=== PATIENT | female | born 1990 | race Two or more races ===

== ENCOUNTER 2017-01-11 07:16 | Emergency (ER) | payer SELFPAY ==
[2017-01-11 07:21] VITALS: BMI 32.0
--- NOTE | 2017-01-11 07:45 | PDOC ---
History of Present Illness - General Chief Complaint: Pain Stated Complaint: LWR ABD PAIN, HEADACHE, FEVER Time Seen by Provider: 01/11/17 07:42 History Source: Patient Exam Limitations: No Limitations - History of Present Illness Initial Comments: CHIEF COMPLAINT: 26 y/o afebrile female with PMH acute appendicitis with periappendical abscess in September of 2014 managed with IV abx only c/o abdominal pain and constipation x 2 days. HISTORY OF PRESENT ILLNESS: The patient states that she has lower abdominal discomfort, nausea and discomfort when trying to have a bowel movement x 2 days. The patient denies f/c, v/d, CP, SOB, back pain, hematuria, dysuria. The patient was treated conservatively for her appendiceal abscess 2 years ago and never had the appendix removed. She states her current pain feels similar to the pain she felt when she had the appendicitis. She describes the pain as intermittent. Vital signs on arrival are within normal limits. REVIEW OF SYSTEMS: GENERAL/CONSTITUTIONAL: No fever/chills. No weakness. No weight change. HEAD, EYES, EARS, NOSE AND THROAT: No change in vision. No ear pain or discharge. No sore throat. CARDIOVASCULAR: No chest pain or shortness of breath. RESPIRATORY: No cough, wheezing, or hemoptysis. GASTROINTESTINAL: +lower abdominal pain, nausea, constipation. No vomiting, diarrhea. GENITOURINARY: No dysuria, frequency, or change in urination. MUSCULOSKELETAL: No joint or muscle swelling or pain. No neck or back pain. SKIN: No rash or easy bruising. NEUROLOGIC: No headache, vertigo, loss of consciousness, or loss of sensation. PHYSICAL EXAM: GENERAL: The patient is awake, alert, and fully oriented, in no acute distress. She is very well appearing, ambulatory, in NAD or obvious discomfort. HEAD: Normal with no signs of trauma. ENT: Pupils equal, round and reactive to light, extraocular movements intact, sclera anicteric, conjunctiva clear. Neck supple. LUNGS: Clear to auscultation bilaterally. Normal excursion. No respiratory distress or use of accessory muscles. CV: RRR, S1/S2, no MRG. Cap refill < 2 sec. ABDOMEN: Soft, non-distended, minimal TTP of suprapubic region. No rebound, guarding or rigidity. Negative obturator or psoas signs. BACK: No CVA TTP b/l. EXTREMITIES: Normal range of motion, no edema. NEUROLOGICAL: Normal speech, normal gait. CN II-XII grossly intact. SKIN: Warm, dry, normal turgor, no rashes or lesions noted. Past History - Past Medical History Allergies/Adverse Reactions: Allergies Allergy/AdvReac Type Severity Reaction Status Date / Time No Known Drug Allergies Allergy Verified 01/11/17 07:21 Home Medications: Ambulatory Orders NK [No Known Home Medication] 02/28/16 Asthma: No Cancer: No Cardiac Disorders: No Diabetes: No HTN: No Seizures: No Thyroid Disease: No - Psycho/Social/Smoking Cessation Hx Anxiety: No Suicidal Ideation: No Smoking History: Never smoked Have you smoked in the past 12 months: No Hx Alcohol Use: Yes (SOCIAL) Drug/Substance Use Hx: No Substance Use Type: None Hx Substance Use Treatment: No *Physical Exam - Vital Signs Last Vital Signs Temp Pulse Resp BP Pulse Ox 98.6 F 87 20 129/75 99 01/11/17 07:18 01/11/17 07:18 01/11/17 07:18 01/11/17 07:18 01/11/17 07:18 ED Treatment Course - LABORATORY CBC & Chemistry Diagram: 01/11/17 08:55 01/11/17 08:55 Medical Decision Making - Medical Decision Making A/P: 26 y/o afebrile female with lower abdominal pain, constipation and nausea x 2 days. Plan is as follows: 1. hcg/UA/culture 2. labs 3. IV fluids 4. IV zofran 5. Ct scan abd/pelvis CT scan abd/pelvis IMPRESSION: CT abdomen and pelvis shows a normal appendix with no signs of appendicitis and no signs of colitis or diverticulitis. No free air with no signs of bowel obstruction. Mild degree of free fluid surrounds the region of the left adnexa with a small amount of fluid near the right adnexa and in the floor of the pelvis with a visualized ruptured cyst imaged in the left ovary measuring 1.9 x 1.4cm, findings consistent with a ruptured left ovarian cyst. Patient now has a fever Ordered 975mg of Tylenol Transvaginal Ultrasound IMPRESSION: Some free fluid in the cul de sac. May be from previously ruptured cyst. Pt's vital signs have improved: Temp - 98.6 HR - 66bpm BP - 117/65 The patient states she feels well. Explained to her she most likely had a ruptured cyst. Gave her all of her results. She may also have a viral illness. Suggested she take Tylenol every 4 hours for fever, drink plenty of fluids, follow up with her doctor within 1 week and return to the ER with any worsening or concerning symptoms. The patient verbalizes understanding of all instructions, has no further questions and is awaiting discharge. *DC/Admit/Observation/Transfer Diagnosis at time of Disposition: Ovarian cyst Abdominal pain Qualifiers: Abdominal location: upper abdomen, unspecified Qualified Code(s): R10.10 - Upper abdominal pain, unspecified Fever Qualifiers: Fever type: unspecified Qualified Code(s): R50.9 - Fever, unspecified - Discharge Dispostion Disposition: HOME Condition at time of disposition: Improved - Referrals Referrals: Sisi Ramon MD [Staff Physician] - Call tomorrow - Patient Instructions Printed Discharge Instructions: DI for Ovarian Cyst, DI for Fever (Symptom) -- Adult Additional Instructions: Discharge Instructions: -It appears that you had an ovarian cyst that ruptured; there is nothing to do for this except take Motrin for pain if needed -You also had a fever in the ER; if you continue to have fevers, please take tylenol every 4 hours to bring it down and drink plenty of water. -Call Dr. Ramon tomorrow to schedule follow up appointment within 1 week -Return to the ER with any worsening or concerning symptoms
[2017-01-11] MEDS ORDERED: SODIUM CHLORIDE 1,000 ML IV STA ×2 (08:29→09:29)
[2017-01-11 09:05] LABS: BASOPHIL 0.4 % (0-2.0); EOSINOPHIL 0.1 % (0-4.5); MCH 30.7 pg (25.7-33.7); MCHC 33.7 g/dl (32.0-36.0); MEAN CELL VOLUME 91.1 fl (80-96); MEAN PLT VOLUME 9.1 fl (7.5-11.1); NEUTROPHILS 75.8 % (42.8-82.8); PLATELET COUNT 159 K/MM3 (134-434); RDW 14.9 % (11.6-15.6); WHITE BLOOD COUNT 6.8 K/mm3 (4.0-10.0)
[2017-01-11 09:06] LABS: URINE APPEARANCE CLEAR; URINE BILIRUBIN NEGATIVE (NEGATIVE); URINE COLOR YELLOW; URINE GLUCOSE (UA) NEGATIVE (NEGATIVE); URINE KETONE 2+ (NEGATIVE); URINE LEUK ESTERASE NEGATIVE (NEGATIVE); URINE NITRITE NEGATIVE (NEGATIVE); URINE UROBILINOGEN 2.0 E.U/dl E.U./dl (0.2-1.0)
[2017-01-11] MEDS ORDERED: ONDANSETRON 4 MG/2 ML VIAL IVPUSH ONE (09:19)
[2017-01-11 09:22] LABS: URINE BLOOD 3+ (NEGATIVE); URINE PROTEIN 1+ (NEGATIVE)
[2017-01-11 09:24] LABS: URINE MUCUS MANY; URINE RBC 44 /hpf (0-3); URINE WBC 2 /hpf (3-5)
[2017-01-11 09:34] LABS: ALBUMIN 3.9 g/dl (3.4-5.0); ALK PHOS 74 U/L (45-117); ANION GAP 6 (8-16); BILIRUBIN,TOTAL 0.3 mg/dL (0.2-1.0); CO2 27 mmol/L (21-32); CREATININE 0.8 mg/dL (0.55-1.02); GLUCOSE,RANDOM 104 mg/dL (74-106); SGOT/AST 23 U/L (15-37); SGPT/ALT 22 U/L (12-78); TOT PROT 7.6 g/dl (6.4-8.2)
[2017-01-11] MEDS ORDERED: ONDANSETRON 4 MG/2 ML VIAL ONE (09:38)
[2017-01-11] MEDS ORDERED: ACETAMINOPHEN 325 MG TABLET (FP) ONE (14:15)
[2017-01-11] MEDS ORDERED: ACETAMINOPHEN 500 MG TABLET (FP) PO ONE (14:18)
[2017-01-11 17:07] VITALS: BP 117/65; PULSE 66; TEMP 98.6
== END 2017-01-11 18:15 | disposition home or self-care (01) ==
LOC: JER 07:16
PROC: 3E033GC Introduction of Other Therapeutic Substance into Peripheral Vein, Percutaneous Approach (ICD-10-PCS; principal; 2017-01-11)
PROC: 3E0337Z Introduction of Electrolytic and Water Balance Substance into Peripheral Vein, Percutaneous Approach (ICD-10-PCS; 2017-01-11)
DX: N83.209 Unspecified ovarian cyst, unspecified side (principal); R10.10 Upper abdominal pain, unspecified; R50.9 Fever, unspecified
CPT/HCPCS: 36415; 74177-TC; 76830-TC; 76856-TC; 80053; 81003; 81015; 83605; 84703; 85025; 87086; 99282-25

== ENCOUNTER 2019-03-13 07:58 | Emergency (ER) | payer SELFPAY ==
[2019-03-13 08:06] VITALS: BP 142/68; PULSE 75; TEMP 97.9; BMI 29.2
[2019-03-13] MEDS ORDERED: KETOROLAC TROMETHAMINE 30 MG/1 ML VIAL IVPUSH ONE (08:20)
[2019-03-13] MEDS ORDERED: ONDANSETRON 4 MG/2 ML VIAL IVPUSH ONE (08:20)
[2019-03-13] MEDS ORDERED: KETOROLAC TROMETHAMINE 30 MG/1 ML VIAL ONE (09:01)
[2019-03-13] MEDS ORDERED: ONDANSETRON 4 MG/2 ML VIAL ONE (09:01)
[2019-03-13 09:14] LABS: BASO % 0.2 % (0-2.0); EOS % 0.7 % (0-4.5); HEMATOCRIT 40.3 % (32.4-45.2); HEMOGLOBIN 13.7 GM/dL (10.7-15.3); LYMPH % 12.6 % (8-40); MCH 32.1 pg (25.7-33.7); MCHC 33.9 g/dl (32.0-36.0); MEAN CELL VOLUME 94.6 fl (80-96); MEAN PLT VOLUME 9.2 fl (7.5-11.1); MONO % 3.6 % (3.8-10.2); NEUT % 82.9 % (42.8-82.8); PLATELET COUNT 194 K/MM3 (134-434); RBC 4.26 M/mm3 (3.60-5.2); RDW 14.2 % (11.6-15.6); WHITE BLOOD COUNT 11.5 K/mm3 (4.0-10.0)
[2019-03-13 09:34] LABS: ALBUMIN 4.1 g/dl (3.4-5.0); BILIRUBIN,TOTAL 0.5 mg/dL (0.2-1); BLOOD UREA NITROGEN 11.4 mg/dL (7-18); CALCIUM 9.1 mg/dL (8.5-10.1); CREATININE 0.8 mg/dL (0.55-1.3); TOT PROT 7.3 g/dl (6.4-8.2)
[2019-03-13 09:55] LABS: HYALINE CASTS 3 /lpf (0-8); PH,URINE 5.5 (5.0-8.0); URINE APPEARANCE TURBID; URINE BACTERIA 4.2 /hpf (NEGATIVE); URINE BILIRUBIN NEGATIVE (NEGATIVE); URINE COLOR YELLOW; URINE GLUCOSE (UA) NEGATIVE (NEGATIVE); URINE KETONE NEGATIVE (NEGATIVE); URINE LEUK ESTERASE NEGATIVE (NEGATIVE); URINE NITRITE NEGATIVE (NEGATIVE); URINE PROTEIN TRACE (NEGATIVE); URINE RBC 3 /hpf (0-4); URINE UROBILINOGEN 0.2 mg/dL (0.2-1.0); URINE WBC 1 /hpf (0-5)
--- NOTE | 2019-03-13 10:07 | PDOC ---
History of Present Illness - General Chief Complaint: Pain, Acute Stated Complaint: ABD. PAIN/ VOMITING Time Seen by Provider: 03/13/19 08:12 History Source: Patient - History of Present Illness Timing/Duration: reports: constant Abdominal Pain Onset Location: reports: other (lower abd) Past History - Past Medical History Allergies/Adverse Reactions: Allergies Allergy/AdvReac Type Severity Reaction Status Date / Time No Known Drug Allergies Allergy Verified 01/11/17 07:21 Penicillins Allergy Verified 03/13/19 08:06 Home Medications: Ambulatory Orders Acetaminophen [Tylenol -] 1,000 mg PO Q6H #30 tablet 03/13/19 Ondansetron HCl [Zofran] 4 mg PO Q8H #12 tablet 03/13/19 Asthma: No Cancer: No Cardiac Disorders: No COPD: No Diabetes: No HTN: No Seizures: No Thyroid Disease: No - Suicide/Smoking/Psychosocial Hx Smoking History: Never smoked Have you smoked in the past 12 months: No Hx Alcohol Use: Yes Drug/Substance Use Hx: No Substance Use Type: None Hx Substance Use Treatment: No Review of Systems - Review of Systems Constitutional: No: Chills, Fever ABD/GI: Yes: Nausea, Vomiting, Abdominal cramping. No: Blood Streaked Bowels, Constipated, Diarrhea, Rectal Bleeding, Tarry Stools : No: Burning, Dysuria, Discharge, Flank Pain, Hematuria *Physical Exam - Vital Signs Last Vital Signs Temp Pulse Resp BP Pulse Ox 97.9 F 75 16 142/68 100 03/13/19 08:03 03/13/19 08:03 03/13/19 08:03 03/13/19 08:03 03/13/19 08:03 - Physical Exam General Appearance: Yes: Appropriately Dressed, Mild Distress HEENT: positive: Normal Voice Neck: positive: Supple Respiratory/Chest: negative: Respiratory Distress Gastrointestinal/Abdominal: positive: Normal Bowel Sounds, Tender (poorle loclaized ttp to lower abd), Soft. negative: Distended, Guarding, Rebound Musculoskeletal: negative: CVA Tenderness Integumentary: positive: Dry, Warm Neurologic: positive: Fully Oriented, Alert, Normal Mood/Affect ED Treatment Course - LABORATORY CBC & Chemistry Diagram: 03/13/19 08:55 03/13/19 08:55 - ADDITIONAL ORDERS Additional order review: Laboratory Results 03/13/19 03/13/19 03/13/19 08:55 08:55 08:50 Sodium 143 Potassium 4.0 Chloride 106 Carbon Dioxide 27 Anion Gap 10 BUN 11.4 Creatinine 0.8 Est GFR (CKD-EPI)AfAm 115.47 Est GFR (CKD-EPI)NonAf 99.63 Random Glucose 101 Calcium 9.1 Total Bilirubin 0.5 AST 19 ALT 19 Alkaline Phosphatase 62 Total Protein 7.3 Albumin 4.1 Lipase 102 Urine Color Yellow Urine Appearance Turbid Urine pH 5.5 Ur Specific [place] 1.023 Urine Protein Trace Urine Glucose (UA) Negative Urine Ketones Negative Urine Blood 2+ H Urine Nitrite Negative Urine Bilirubin Negative Urine Urobilinogen 0.2 Ur Leukocyte Esterase Negative Urine WBC (Auto) 1 Urine RBC (Auto) 3 Urine Casts (Auto) 3 U Epithel Cells (Auto) 2.0 Urine Bacteria (Auto) 4.2 Urine HCG, Qual 03/13/19 08:50 Sodium Potassium Chloride Carbon Dioxide Anion Gap BUN Creatinine Est GFR (CKD-EPI)AfAm Est GFR (CKD-EPI)NonAf Random Glucose Calcium Total Bilirubin AST ALT Alkaline Phosphatase Total Protein Albumin Lipase Urine Color Urine Appearance Urine pH Ur Specific [place] Urine Protein Urine Glucose (UA) Urine Ketones Urine Blood Urine Nitrite Urine Bilirubin Urine Urobilinogen Ur Leukocyte Esterase Urine WBC (Auto) Urine RBC (Auto) Urine Casts (Auto) U Epithel Cells (Auto) Urine Bacteria (Auto) Urine HCG, Qual Negative 03/13/19 08:55 RBC 4.26 MCV 94.6 MCHC 33.9 RDW 14.2 MPV 9.2 Neutrophils % 82.9 H Lymphocytes % 12.6 D Monocytes % 3.6 L Eosinophils % 0.7 D Basophils % 0.2 - RADIOLOGY Radiology Studies Ordered: Category Date Time Status ABDOMEN & PELVIS CT WITH CONTR [CT] Stat CT Scan 03/13/19 08:18 Ordered - Medications Given in the ED: ED Medications Discontinued Medications Generic Name Dose Route Start Last Admin Trade Name Freq PRN Reason Stop Dose Admin Ketorolac Tromethamine 30 mg 03/13/19 08:20 03/13/19 09:20 Toradol Injection - IVPUSH 03/13/19 08:21 30 mg ONCE ONE Administration Ondansetron HCl 4 mg 03/13/19 08:20 03/13/19 09:21 Zofran Injection IVPUSH 03/13/19 08:21 4 mg ONCE ONE Administration Medical Decision Making - Medical Decision Making 03/13/19 10:01 28-year-old female here with recurrent lower abdominal pain for several days with nausea, vomiting. No diarrhea, constipation, dysuria, vaginal discharge, fever or chills. In 2014, pt was dx w/ appy w/ periappendeal abscess here that was treated w/ IV abx only at [facility] w/ resolution of abscess on subsequent CTs per pt. No surgery done. Has had multiple ER visits for abd pain since then, usually w/ neg w/u in ED. See exam Recurrent lower abd pain Dx w/ appy/abscess in 2014-improved w/ IV abx only, no surgery done Neg w/u on subsequent visits for abd pain here Stable w/ poorly localized ttp to lower abd -pain control -zofran -IVF -labs -CT 03/13/19 11:10 CT w/ multiple cysts to R ovary. ?colitis to transverse/descending colon vs underdistension. Of note, pt has no diarrhea. Pain since improved w/ meds. Will send for US r/o torsion 03/13/19 13:03 Labs unremarkable with no cysts visualized and no evidence of torsion. Pain since improved w/ mes. Will dc with symptomatic control and give GI referral at this time for recurrent/chronic abdominal pain *DC/Admit/Observation/Transfer Diagnosis at time of Disposition: Abdominal pain Qualifiers: Abdominal location: unspecified location Qualified Code(s): R10.9 - Unspecified abdominal pain - Discharge Dispostion Disposition: HOME Condition at time of disposition: Improved - Prescriptions Prescriptions: Acetaminophen [Tylenol -] 1,000 mg PO Q6H #30 tablet Ondansetron HCl [Zofran] 4 mg PO Q8H #12 tablet - Referrals Referrals: Alejandro Green MD [Staff Physician] - - Patient Instructions Printed Discharge Instructions: DI for Abdominal Pain-Adult Additional Instructions: Please follow up with Dr Green of GI for further evaluation - Post Discharge Activity Forms/Work/School Notes: Back to Work
[2019-03-13] MEDS ORDERED: ACETAMINOPHEN 325 MG TABLET (FP) PO ONE (12:29)
[2019-03-13] MEDS ORDERED: ACETAMINOPHEN 325 MG TABLET (FP) ONE (13:15)
== END 2019-03-13 13:30 | disposition home or self-care (01) ==
LOC: JER 07:58
PROC: 3E0333Z Introduction of Anti-inflammatory into Peripheral Vein, Percutaneous Approach (ICD-10-PCS; principal; 2019-03-13)
PROC: 3E033GC Introduction of Other Therapeutic Substance into Peripheral Vein, Percutaneous Approach (ICD-10-PCS; 2019-03-13)
DX: R10.9 Unspecified abdominal pain (principal)
CPT/HCPCS: 36415; 74177-TC; 76830-TC; 76856-TC; 80053; 81003; 83690; 84703; 85025; 87491; 87591; 99282-25

== ENCOUNTER 2019-05-14 16:51 | Emergency (ER) | payer SELFPAY ==
[2019-05-14 16:57] VITALS: BP 142/80; PULSE 74; TEMP 98.7; BMI 29.2
[2019-05-14] MEDS ORDERED: SODIUM CHLORIDE 1,000 ML IV STA (16:57)
[2019-05-14] MEDS ORDERED: ONDANSETRON 4 MG/2 ML VIAL IVPUSH ONE (16:57)
--- NOTE | 2019-05-14 16:57 | PDOC ---
Rapid Medical Evaluation Time Seen by Provider: 05/14/19 16:54 Medical Evaluation: Allergies Allergy/AdvReac Type Severity Reaction Status Date / Time No Known Drug Allergies Allergy Verified 01/11/17 07:21 Penicillins Allergy Verified 03/13/19 08:06 05/14/19 16:55 CC: vomiting "for hours." diffuse abd cramping. LMP-05/09 PE: Abd SNTND. No CVAT Orders: abdominal w/u The patient will proceed to the ER for continued Evaluation. Discharge Disposition - Diagnosis Vomiting - Referrals - Patient Instructions - Post Discharge Activity
[2019-05-14 17:30] LABS: BASO % 0.5 % (0-2.0); EOS % 0.1 % (0-4.5); HEMATOCRIT 39.6 % (32.4-45.2); HEMOGLOBIN 13.5 GM/dL (10.7-15.3); LYMPH % 17.4 % (8-40); MCH 32.2 pg (25.7-33.7); MCHC 34.2 g/dl (32.0-36.0); MEAN CELL VOLUME 94.3 fl (80-96); MONO % 3.1 % (3.8-10.2); NEUT % 78.9 % (42.8-82.8); PLATELET COUNT 252 K/MM3 (134-434); RDW 13.8 % (11.6-15.6); WHITE BLOOD COUNT 12.8 K/mm3 (4.0-10.0)
[2019-05-14 17:35] LABS: EPI CELLS 12.2 /HPF (0-5/HPF); HYALINE CASTS 15 /lpf (0-8); URINE APPEARANCE CLOUDY; URINE BACTERIA 241.1 /hpf (NEGATIVE); URINE BILIRUBIN NEGATIVE (NEGATIVE); URINE COLOR YELLOW; URINE GLUCOSE (UA) NEGATIVE (NEGATIVE); URINE KETONE NEGATIVE (NEGATIVE); URINE LEUK ESTERASE NEGATIVE (NEGATIVE); URINE NITRITE NEGATIVE (NEGATIVE); URINE PROTEIN 1+ (NEGATIVE); URINE RBC 29 /hpf (0-4); URINE UROBILINOGEN 0.2 mg/dL (0.2-1.0); URINE WBC 4 /hpf (0-5)
[2019-05-14] MEDS ORDERED: ONDANSETRON 4 MG/2 ML VIAL ONE (17:52)
[2019-05-14 18:07] LABS: ALBUMIN 4.3 g/dl (3.4-5.0); BILIRUBIN,TOTAL 0.4 mg/dL (0.2-1); BLOOD UREA NITROGEN 15.6 mg/dL (7-18); CALCIUM 9.1 mg/dL (8.5-10.1); CREATININE 0.8 mg/dL (0.55-1.3); POTASSIUM 3.9 mmol/L (3.5-5.1); TOT PROT 7.7 g/dl (6.4-8.2)
[2019-05-14] MEDS ORDERED: PANTOPRAZOLE SODIUM 40 MG VIAL IVPUSH ONE (18:16)
[2019-05-14] MEDS ORDERED: PANTOPRAZOLE SODIUM 40 MG VIAL ONE (18:23)
--- NOTE | 2019-05-14 18:32 | PDOC ---
History of Present Illness - General Chief Complaint: Nausea/Vomiting Stated Complaint: VOMITING Time Seen by Provider: 05/14/19 16:54 History Source: Patient Exam Limitations: No Limitations - History of Present Illness Travel History: No Initial Comments: 05/14/19 18:28 28-year-old female presents to ED with complaints of nausea and vomiting since this morning. Patient states ate late last night at a fast food place having chicken and sides. Patient states similar symptoms with her friend this morning not as severe. Patient denies irregular menses, urinary complaints, diarrhea, fever or headache. Patient does state chills and mild malaise. Patient states unable to tolerate p.o. secondary to nausea and vomiting. Timing/Duration: reports: changing over time Quality: reports: mild, burning Abdominal Pain Onset Location: reports: epigastric Pain Radiation: reports: no radiation Activities at Onset: reports: none Aggravating Factors: improves with: None Alleviating Factors: improves with: None Past History - Travel Traveled outside of the country in the last 30 days: No Close contact w/someone who was outside of country & ill: No - Past Medical History Allergies/Adverse Reactions: Allergies Allergy/AdvReac Type Severity Reaction Status Date / Time Penicillins Allergy Verified 05/14/19 16:57 Home Medications: Ambulatory Orders Acetaminophen [Tylenol -] 1,000 mg PO Q6H #30 tablet 03/13/19 Ondansetron HCl [Zofran] 4 mg PO Q8H #12 tablet 03/13/19 Ondansetron HCl [Zofran] 4 mg PO TID PRN #12 tablet 05/14/19 Asthma: No Cancer: No Cardiac Disorders: No COPD: No Diabetes: No HTN: No Seizures: No Thyroid Disease: No - Psycho Social/Smoking Cessation Hx Smoking History: Never smoked Have you smoked in the past 12 months: No Information on smoking cessation initiated: No Hx Alcohol Use: Yes Drug/Substance Use Hx: No Substance Use Type: None Hx Substance Use Treatment: No Patient Lives Alone: No Lives with/in: parents Review of Systems - Review of Systems Able to Perform ROS?: Yes Constitutional: Yes: Loss of Appetite, Weakness HEENTM: No: Symptoms Reported Respiratory: No: Symptoms reported Cardiac (ROS): No: Symptoms Reported ABD/GI: Yes: Nausea, Vomiting, Indigestion : No: Symptoms Reported Musculoskeletal: No: Symptoms Reported Integumentary: No: Symptoms Reported Neurological: No: Symptoms reported Endocrine: No: Symptoms Reported Hematologic/Lymphatic: No: Symptoms Reported *Physical Exam - Vital Signs Last Vital Signs Temp Pulse Resp BP Pulse Ox 98.7 F 74 18 142/80 98 05/14/19 16:53 05/14/19 16:53 05/14/19 16:53 05/14/19 16:53 05/14/19 16:53 - Physical Exam General Appearance: Yes: Nourished, Appropriately Dressed. No: Apparent Distress HEENT: positive: Pharynx Normal. negative: Pale Conjunctivae Neck: positive: Normal Thyroid, Supple Respiratory/Chest: positive: Lungs Clear, Normal Breath Sounds. negative: Respiratory Distress, Accessory Muscle Use Cardiovascular: positive: Regular Rhythm, Regular Rate. negative: Murmur Gastrointestinal/Abdominal: positive: Normal Bowel Sounds, Soft. negative: Tenderness Musculoskeletal: negative: CVA Tenderness Extremity: positive: Normal Inspection Integumentary: positive: Normal Color, Warm, Moist Neurologic: positive: Motor Strength 5/5 (Ambulatory) ED Treatment Course - LABORATORY CBC & Chemistry Diagram: 05/14/19 17:09 05/14/19 17:09 - ADDITIONAL ORDERS Additional order review: Laboratory Results 05/14/19 05/14/19 05/14/19 17:09 17:09 17:09 Sodium 142 Potassium 3.9 Chloride 109 H Carbon Dioxide 26 Anion Gap 7 L BUN 15.6 Creatinine 0.8 Est GFR (CKD-EPI)AfAm 115.47 Est GFR (CKD-EPI)NonAf 99.63 Random Glucose 102 Calcium 9.1 Total Bilirubin 0.4 AST 21 ALT 26 Alkaline Phosphatase 69 Total Protein 7.7 Albumin 4.3 Lipase 66 L Urine Color Yellow Urine Appearance Cloudy Urine pH 7.0 D Ur Specific [place] 1.033 Urine Protein 1+ H Urine Glucose (UA) Negative Urine Ketones Negative Urine Blood 3+ H Urine Nitrite Negative Urine Bilirubin Negative Urine Urobilinogen 0.2 Ur Leukocyte Esterase Negative Urine WBC (Auto) 4 Urine RBC (Auto) 29 Urine Casts (Auto) 15 U Epithel Cells (Auto) 12.2 Urine Bacteria (Auto) 241.1 Urine HCG, Qual Negative 05/14/19 17:09 RBC 4.20 MCV 94.3 MCHC 34.2 RDW 13.8 MPV 9.0 Neutrophils % 78.9 Lymphocytes % 17.4 D Monocytes % 3.1 L Eosinophils % 0.1 D Basophils % 0.5 - Medications Given in the ED: ED Medications Discontinued Medications Generic Name Dose Route Start Last Admin Trade Name Carlyn PRN Reason Stop Dose Admin Sodium Chloride 1,000 mls @ 1,000 mls/hr 05/14/19 16:57 05/14/19 18:11 Normal Saline - IV 05/14/19 17:56 1,000 mls/hr ASDIR STA Administration Ondansetron HCl 4 mg 05/14/19 16:57 05/14/19 18:11 Zofran Injection IVPUSH 05/14/19 16:58 4 mg ONCE ONE Administration Pantoprazole Sodium 40 mg 05/14/19 18:16 05/14/19 18:24 Protonix Iv IVPUSH 05/14/19 18:17 40 mg ONCE ONE Administration Medical Decision Making - Medical Decision Making 05/14/19 18:00 Chief complaint: Nausea and vomiting since awakening this a.m. Patient states from with similar symptoms after eating chicken at a fast food place. Patient now with epigastric to mid chest burning requesting something for heartburn and nausea Exam. Patient with no abdominal tenderness vital signs stable. No active vomiting upon my arrival. Plan: Patient had orders and meds ordered from [facility]. Added Protonix. 05/14/19 18:31 Laboratory Tests 05/14/19 05/14/19 05/14/19 17:09 17:09 17:09 WBC 12.8 H Hgb 13.5 Hct 39.6 Absolute Neuts (auto) 10.1 H Neutrophils % 78.9 Lymphocytes % 17.4 D Monocytes % 3.1 L Sodium 142 Potassium 3.9 Chloride 109 H Carbon Dioxide 26 Anion Gap 7 L BUN 15.6 Creatinine 0.8 Random Glucose 102 Calcium 9.1 Total Bilirubin 0.4 AST 21 ALT 26 Alkaline Phosphatase 69 Albumin 4.3 Lipase 66 L Urine Protein Urine Blood Ur Leukocyte Esterase Urine WBC (Auto) Urine RBC (Auto) Urine HCG, Qual Negative 05/14/19 17:09 WBC Hgb Hct Absolute Neuts (auto) Neutrophils % Lymphocytes % Monocytes % Sodium Potassium Chloride Carbon Dioxide Anion Gap BUN Creatinine Random Glucose Calcium Total Bilirubin AST ALT Alkaline Phosphatase Albumin Lipase Urine Protein 1+ H Urine Blood 3+ H Ur Leukocyte Esterase Negative Urine WBC (Auto) 4 Urine RBC (Auto) 29 Urine HCG, Qual Patient states is completing her menses. Patient states resolution of symptoms will finish her IV fluids and discharge home with Zofran. Discharge - Discharge Information Problems reviewed: Yes Clinical Impression/Diagnosis: Vomiting Condition: Improved Disposition: HOME - Additional Discharge Information Prescriptions: Ondansetron HCl [Zofran] 4 mg PO TID PRN #12 tablet PRN Reason: Nausea And/Or Vomiting - Follow up/Referral - Patient Discharge Instructions Patient Printed Discharge Instructions: DI for Nausea -- Adult, DI for Vomiting -- Adult Additional Instructions: Take Zofran as needed for nausea. Follow a bland diet for the next 72 hours and then may advance as tolerated. If your symptoms worsen and you are unable to eat please return to the ED. otherwise follow-up with your primary care physician. - Post Discharge Activity
[2019-05-14] MEDS ORDERED: ONDANSETRON *ODT* 4 MG TABLET SL ONE (19:13)
[2019-05-14] MEDS ORDERED: ONDANSETRON *ODT* 4 MG TABLET ONE (19:13)
== END 2019-05-14 19:16 | disposition home or self-care (01) ==
LOC: JER 16:51
PROC: 3E033GC Introduction of Other Therapeutic Substance into Peripheral Vein, Percutaneous Approach (ICD-10-PCS; principal; 2019-05-14)
PROC: 3E033GC Introduction of Other Therapeutic Substance into Peripheral Vein, Percutaneous Approach (ICD-10-PCS; 2019-05-14)
DX: R11.10 Vomiting, unspecified (principal)
CPT/HCPCS: 36415; 80053; 81003; 83690; 84703; 85025; 87086; 99283-25; J7030

== ENCOUNTER 2020-08-20 19:22 | Emergency (ER) | payer OTHER ==
[2020-08-20 19:46] VITALS: BMI 24.7
[2020-08-20] MEDS ORDERED: ONDANSETRON 4 MG/2 ML VIAL IVPUSH ONE (20:50)
[2020-08-20] MEDS ORDERED: SODIUM CHLORIDE 1,000 ML IV STA (20:50)
[2020-08-20] MEDS ORDERED: ONDANSETRON 4 MG/2 ML VIAL ONE (21:08)
[2020-08-20 21:15] LABS: BASO % 0.7 % (0-2.0); EOS % 0.1 % (0-4.5); HEMATOCRIT 36.9 % (32.4-45.2); HEMOGLOBIN 12.6 GM/dL (10.7-15.3); LYMPH % 29.7 % (8-40); MCH 32.1 pg (25.7-33.7); MCHC 34.2 g/dl (32.0-36.0); MEAN CELL VOLUME 93.9 fl (80-96); MONO % 7.8 % (3.8-10.2); NEUT % 61.7 % (42.8-82.8); PLATELET COUNT 195 K/MM3 (134-434); RBC 3.93 M/mm3 (3.60-5.2); RDW 13.4 % (11.6-15.6); WHITE BLOOD COUNT 5.9 K/mm3 (4.0-10.0)
[2020-08-20] MEDS ORDERED: ACETAMINOPHEN 1000 MG/100 ML VIAL (NON FORMULARY) IVPB ONE (21:25)
[2020-08-20 21:44] LABS: POTASSIUM 3.9 mmol/L (3.5-5.1)
[2020-08-20 21:47] LABS: ALBUMIN 3.8 g/dl (3.4-5.0); BLOOD UREA NITROGEN 9.6 mg/dL (7-18); CALCIUM 8.9 mg/dL (8.5-10.1)
[2020-08-20 21:50] LABS: CREATININE 0.7 mg/dL (0.55-1.3)
[2020-08-20 21:51] LABS: BILIRUBIN,TOTAL 0.3 mg/dL (0.2-1)
[2020-08-20 21:52] LABS: TOT PROT 7.3 g/dl (6.4-8.2)
[2020-08-20] MEDS ORDERED: ACETAMINOPHEN INJECTION 100 ML IVPB ONE (21:58)
[2020-08-20 23:34] LABS: EPI CELLS 7 /uL (0-25.1); HCG,QUALITATIVE URINE Negative; HYALINE CASTS 1 /uL (0-3.1); PH,URINE 6.5 (5.0-8.0); URINE APPEARANCE CLEAR; URINE BACTERIA 54 /uL (0-1359); URINE BILIRUBIN NEGATIVE (NEGATIVE); URINE COLOR YELLOW; URINE GLUCOSE (UA) NEGATIVE (NEGATIVE); URINE KETONE 1+ (NEGATIVE); URINE LEUK ESTERASE NEGATIVE (NEGATIVE); URINE NITRITE NEGATIVE (NEGATIVE); URINE PROTEIN TRACE (NEGATIVE); URINE RBC 108 /uL (0-23.9); URINE UROBILINOGEN 0.2 mg/dL (0.2-1.0); URINE WBC 10 /uL (0-25.8)
[2020-08-21 04:30] VITALS: BP 116/65; PULSE 67; TEMP 97.1
== END 2020-08-21 04:30 | disposition home or self-care (01) ==
LOC: JER 19:22
PROC: 3E0333Z Introduction of Anti-inflammatory into Peripheral Vein, Percutaneous Approach (ICD-10-PCS; principal; 2020-08-20)
PROC: 3E033GC Introduction of Other Therapeutic Substance into Peripheral Vein, Percutaneous Approach (ICD-10-PCS; 2020-08-20)
PROC: 3E0337Z Introduction of Electrolytic and Water Balance Substance into Peripheral Vein, Percutaneous Approach (ICD-10-PCS; 2020-08-20)
DX: I88.0 Nonspecific mesenteric lymphadenitis (principal)
CPT/HCPCS: 36415; 74177-TC; 76705-TC; 80053; 81003; 83690; 84703; 85025; 87086; 99285-25; C9803; J0131; U0003